=== PATIENT | female | born 1950 | race Caucasian/White ===

== ENCOUNTER → 2019-10-30 | Outpatient (CLI) | payer MEDICARE, MEDICAID ==
--- NOTE | 2019-10-30 15:05 | US ---
EXAM DESCRIPTION: Pelvis Transvaginal: Ultrasound. CLINICAL HISTORY: 68 years Female POSTMENOPAUSAL BLEEDING COMPARISON: None. TECHNIQUE: Endovaginal scanning; Chan-scale and Doppler modes. FINDINGS: Uterus 5.9 x 3.4 x 2.5 cm 26.2 mL.. Endometrial thickness is 8.2 mm, which is thickened and contains minimal fluid. Myometrium appears heterogeneous.. Hypoechoic mass in the posterior uterus measuring 1.5 x 1.4 x 0.7 cm with central more hypoechoic region. Uterus not retroflexed. Cervix unremarkable. Cul-de-sac contains no fluid. Right ovary 1.5 x 1.0 x 0.8 cm 0.6 mL.. Normal color Doppler vascularity. No follicles or cysts. No adnexal mass or free fluid. Left ovary 4.6 x 2.5 x 4.3 cm 25.6 mL. Complex appearance.. Minimal color Doppler vascularity. Solid components as well as fluid-filled and complex cysts. Multiple septations measuring 1.5 mm or less. Some of the septations or vascular. Possible calcifications. No free fluid. IMPRESSION: 1. Left ovary almost 26 mL normal volume. Complex cystic and solid regions with possible calcification. Possible abnormal vascularity. Indeterminately sized indeterminate ovarian cyst. Abnormal endometrial thickening with fluid. Recommend gynecological consult for surgical evaluation. Reference: Radiology 2010 Jun;256(3):943-54. 2. Normal size and appearance of the right ovary. Uterus normal position. Posterior 1.5 cm fibroid. Electronically signed by: Torito Tucker MD 10/30/2019 3:03 PM SYSTEMS TECHNICIAN
== END ==
LOC: US 09:34
PROVIDERS: ATTEND Nurse Practitioner Family
DX: N95.0 Postmenopausal bleeding (principal); N83.202 Unspecified ovarian cyst, left side; N85.00 Endometrial hyperplasia, unspecified; D25.9 Leiomyoma of uterus, unspecified

== ENCOUNTER 2020-04-04 19:51 | Emergency (ER) | payer MEDICARE, MEDICAID ==
[2020-04-04] MEDS ORDERED: HYDROcodone 5MG/APAP 325MG 1 EA TAB PO ONE (20:10)
[2020-04-04] MEDS ORDERED: ONDANSETRON ODT 8 MG TAB SL ONE (20:10)
--- NOTE | 2020-04-04 20:13 | ED.PDOC ---
History of Present Illness - General Chief Complaint: Trauma Stated Complaint: fall, left wrist pain, left knee abrasion Time Seen by Provider: 04/04/20 20:09 Source: patient, RN notes reviewed, Vital Signs reviewed Additional Information: 69yo F no PMH with reported left wrist pain. Patient reports she was playing with dog prior to arrival, and fell out pavement on outstretched hand. Denies head injury, LOC, pain at other location, syncope, chest pain, or other injury at this time. - History of Present Illness Allergies/Adverse Reactions: Allergies Penicillins Allergy (Verified 04/04/20 20:12) Home Medications: Ambulatory Orders Acetaminophen W/ Codeine [Tylenol W/ CODEINE #3] 1 ea PO Q8HR PRN #15 04/04/20 Citalopram Hydrobromide [Celexa] 10 mg PO DAILY 04/04/20 Docusate Sodium [Colace Cap] 100 mg PO DAILY 04/04/20 Lisinopril 20 mg PO DAILY 04/04/20 Ondansetron Odt [Zofran ODT] 4 mg PO Q8HR PRN #20 tab 04/04/20 Potassium Chloride [K-Tab] 10 meq PO DAILY 04/04/20 Pravastatin Sodium 10 mg PO DAILY 04/04/20 amLODIPine BESYLATE [Norvasc] 5 mg PO DAILY 04/04/20 Review of Systems - Review of Systems Musculoskeletal: States: joint pain - left wrist All other Systems: Reviewed and Negative Past Medical History (General) - Patient Medical History Hx MRSA: Yes - Sputum 2011 MRSA Source:: Sputum Family Medical History - Family History Mother Family History: Unknown Physical Exam - Physical Exam General Appearance: Alert, No apparent distress, Well Developed, Well Nourished Ears, Nose, Throat: hearing grossly normal Neck: non-tender, full range of motion, supple Respiratory: chest non-tender, lungs clear, normal breath sounds Cardiovascular/Chest: normal peripheral pulses, regular rate, rhythm, no edema Peripheral Pulses: radial,right: 2+, radial,left: 2+ Gastrointestinal/Abdominal: non tender, soft Extremity: other - LUE: 2+ radial/ulnar pulses, intact light touch sensation, moves all fingers, limited ROM wrist secondary to pain, no pain with palpation left elbow/shoulder, 2sec cap refill 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 Concern for fx. Plan for pain control in ED, labs/ imaging as appropriate, with goal of symptomatic improvement and relief. Fx noted on xrays, immobilization in ED, and patient remained neurovascularly intact. ED warnings and instruction for splint and/or immobilizer care given, outpatient f/u with PCP and/or ortho. 04/04/20 21:22 Patient and I wore masks for duration of encounter, and I maintained a distance of 6 feet except for those brief times need for physical exam. Institutional screening protocol for coronavirus performed in triage. Xray results: "Impression: distal radius minimally impacted fracture." Alex Mcneil MD #[id number] 04/04/20 21:28 - EKG/XRAY/CT Xray Comments: left wrist with non-displaced, comminuted distal radius fracture Departure - Departure Clinical Impression: Radius distal fracture Time of Disposition: 21:17 Disposition: Discharge to Home or Self Care Condition: Good Departure Forms: ED Discharge - Pt. Copy, Patient Portal Self Enrollment Instructions: DI for Trauma, Radius Fracture (DC), Splint Care Diet: resume usual diet Referrals: Juanjose Sanchez MD [Primary Care Provider] - 1-5 Days Donis Ortiz MD [Active Staff] - 1-2 Days Prescriptions: Acetaminophen W/ Codeine [Tylenol W/ CODEINE #3] 1 ea PO Q8HR PRN #15 PRN Reason: Pain -- Severe Ondansetron Odt [Zofran ODT] 4 mg PO Q8HR PRN #20 tab PRN Reason: Nausea/Vomiting Home Medications: Ambulatory Orders Acetaminophen W/ Codeine [Tylenol W/ CODEINE #3] 1 ea PO Q8HR PRN #15 04/04/20 Citalopram Hydrobromide [Celexa] 10 mg PO DAILY 04/04/20 Docusate Sodium [Colace Cap] 100 mg PO DAILY 04/04/20 Lisinopril 20 mg PO DAILY 04/04/20 Ondansetron Odt [Zofran ODT] 4 mg PO Q8HR PRN #20 tab 04/04/20 Potassium Chloride [K-Tab] 10 meq PO DAILY 04/04/20 Pravastatin Sodium 10 mg PO DAILY 04/04/20 amLODIPine BESYLATE [Norvasc] 5 mg PO DAILY 04/04/20 Additional Instructions: You were seen in the [facility] Emergency Department today. Please fill and take the medications as prescribed (if any) and if you were prescribed antibiotics, please complete the full course. You will need further evaluation on an out patient basis. You must follow up with the listed locations and within the time frames indicated in your discharge paperwork (including your PCP in 3-5 days). Failure to follow up with any studies or doctor visits within the timeframe mentioned could result in poor outcome. Your examination today in the ED did not reveal a new or old problem that required immediate surgery or admission to the hospital. However, you should return to the ED if you are not improving as instructed (especially within the first 6 to 24 hours). This may include things such as uncontrolled vomiting, shortness of breath, fever, bleeding, or severe pain in a body part. You should return for any new or worsening emergency symptoms such as chest pain, severe headache, confusion, or severe abdominal pain. Finally, return to the emergency department if you have any concerns not mentioned above that are concerning to you or if you are unable to follow up as instructed above. Thank you for coming to [facility]. It was our pleasure to serve you today and we thank you for your visit.
--- NOTE | 2020-04-04 21:25 | RAD ---
XR FOREARM 2 VIEWS CLINICAL STATEMENT: pain s/p fall COMPARISON: None FINDINGS: Bony alignment is anatomic. There is minimally impacted distal radius fracture. No dislocation. Minimally displaced ulnar styloid avulsion fracture. Bones of the hand are intact. IMPRESSION: Distal radius minimally impacted fracture. Electronically signed by: Yaya Barrios MD 04/04/2020 9:24 PM CDT
[2020-04-04 21:36] VITALS: BP 179/88; TEMP 99.1; O2SAT 99
--- NOTE | 2020-04-04 22:23 | RAD ---
CLINICAL HISTORY: pain s/p fall COMPARISON: None. TECHNIQUE: XR HAND 1-2 VIEWS, XR WRIST 3 OR MORE VIEWS 04/04/2020 8:10 PM CDT FINDINGS: There is an impacted, mildly comminuted fractures of distal radial metaphysis. There is a nondisplaced fracture of the ulnar styloid process. There are moderate diffuse degenerative changes throughout the hand. There is soft tissue swelling overlying the wrist. IMPRESSION: Distal forearm fractures. Electronically signed by: Issa Guzman MD 04/04/2020 10:21 PM CDT
== END 2020-04-04 21:40 | disposition home or self-care (01) ==
LOC: ER 19:51
DX: S52.502A Unspecified fracture of the lower end of left radius, initial encounter for closed fracture (principal); Z79.899 Other long term (current) drug therapy; W19.XXXA Unspecified fall, initial encounter; Y92.9 Unspecified place or not applicable

== ENCOUNTER → 2020-04-15 | Outpatient (CLI) | payer MEDICARE, MEDICAID ==
--- NOTE | 2020-04-15 14:45 | RAD ---
EXAM DESCRIPTION: Wrist,Left 3 Views CLINICAL HISTORY: 69 years Female, RAD FX COMPARISON: April 04, 2020 Findings: 3 view(s)/radiograph(s) Slight increased impaction of the intra-articular distal radius fracture. Similar ulnar styloid avulsion fracture. No interval healing. No new fracture. Improved soft tissue swelling. Osteopenia. Carpal alignment maintained. IMPRESSION: Slightly increased impaction of the distal left radius fracture. No interval healing. Electronically signed by: Eric Aguilar MD 04/15/2020 2:43 PM CDT
== END ==
LOC: RAD 09:34
PROVIDERS: ATTEND Orthopaedic Surgery
DX: S52.502D Unspecified fracture of the lower end of left radius, subsequent encounter for closed fracture with routine healing (principal)

== ENCOUNTER → 2020-05-14 | Outpatient (CLI) | payer MEDICARE, MEDICAID ==
--- NOTE | 2020-05-14 13:59 | RAD ---
EXAM DESCRIPTION: Left wrist, 3 radiographs CLINICAL HISTORY: Radius fracture FINDINGS/ IMPRESSION: Comparison 04/15/2020 Fracture across the distal radius. Slightly greater sclerosis. Compatible with trabecular condensation and healing. Fracture line is less well seen. Impaction overlap similar about 4-6 mm. Similar distance between the distal ulna and the lunate. Remote fracture of the ulnar styloid with sclerosis of the small styloid fragment No carpal or metacarpal fracture. Normal intercarpal distances Electronically signed by: Eugene Rhodes MD 05/14/2020 1:57 PM CDT
== END ==
LOC: RAD 10:02
PROVIDERS: ATTEND Orthopaedic Surgery
DX: S52.502D Unspecified fracture of the lower end of left radius, subsequent encounter for closed fracture with routine healing (principal); S52.615D Nondisplaced fracture of left ulna styloid process, subsequent encounter for closed fracture with routine healing

== ENCOUNTER → 2020-06-14 | Outpatient (CLI) | payer MEDICARE, MEDICAID ==
--- NOTE | 2020-06-14 14:33 | RAD ---
EXAM DESCRIPTION: Wrist,Left 3 Views CLINICAL HISTORY: 69 years Female, CLOSED FRACTURE OF DISTAL END OF RADIUS COMPARISON: May 14, 2020 Findings: 3 view(s)/radiograph(s) Healing distal left radius fracture. Similar alignment. Unchanged ulnar styloid fracture. Carpal alignment maintained. Osteopenia. Similar degenerative changes. No new fracture identified. No dislocation. IMPRESSION: Healing distal left radius fracture. Similar alignment. Electronically signed by: Eric Aguilar MD 06/14/2020 2:31 PM CDT
== END | disposition home or self-care (01) ==
LOC: RAD 09:35
PROVIDERS: ATTEND Orthopaedic Surgery
DX: S52.502D Unspecified fracture of the lower end of left radius, subsequent encounter for closed fracture with routine healing (principal); W18.30XA Fall on same level, unspecified, initial encounter